=== PATIENT | female | born 1990 | race Caucasian/White ===

== ENCOUNTER 2018-06-04 16:45 | Emergency (ER) | payer BC, MEDICAID ==
--- NOTE | 2018-06-04 17:07 | EDM.PDOC ---
ED HPI GENERAL MEDICAL PROBLEM - General Chief Complaint: Abdominal Pain Stated Complaint: KROHNS DISEASE FLARE UP Time Seen by Provider: 06/04/18 16:45 Source of Information: Reports: Patient, Family History Limitations: Reports: No Limitations - History of Present Illness INITIAL COMMENTS - FREE TEXT/NARRATIVE: 27 y.o w f with a H/o Crohn's disease, came to the ed due to RLQ abd. pain. Pt had her appendix removed and had a partial colostomy as well. No N/V. Pt has chronic diarrhea, no blood in her stool. Stewart occ painful urinations. No trauma, no other acute medical issues. BP 129/90 pulse 98 RR 18 Pulse ox 100% on RA Temp 36.8 Onset Date: 06/04/18 Onset Time: 07:00 Duration: Hour(s):, Intermittent Location: Reports: Abdomen Severity: Mild Improves with: Reports: Rest Worsens with: Reports: Movement Context: Reports: Other Associated Symptoms: Reports: No Other Symptoms abdomen Pain Score (Numeric/FACES): 6 - Related Data Allergies Allergy/AdvReac Type Severity Reaction Status Date / Time acetaminophen Allergy Itching Verified 06/04/18 16:58 [From Tylenol-Codeine] codeine Allergy Itching Verified 06/04/18 16:58 [From Tylenol-Codeine] levofloxacin [From Levaquin] Allergy Facial Verified 06/04/18 16:58 Swelling Home Meds: Home Meds Acetaminophen/HYDROcodone [[place] 325-5 MG] 1 - 2 tab PO Q6H PRN #4 tab 06/04/18 [Rx] Sulfamethoxazole/Trimethoprim [Bactrim Ds Tablet] 1 each PO BID #20 tablet 06/04 [Rx] ED ROS GENERAL - Review of Systems Review Of Systems: See Below Constitutional: Reports: No Symptoms HEENT: Reports: No Symptoms Respiratory: Reports: No Symptoms Cardiovascular: Reports: No Symptoms Endocrine: Reports: No Symptoms GI/Abdominal: Reports: Abdominal Pain (RLQ of abdomen) : Reports: Dysuria Musculoskeletal: Reports: No Symptoms Skin: Reports: No Symptoms Neurological: Reports: No Symptoms Psychiatric: Reports: No Symptoms Hematologic/Lymphatic: Reports: No Symptoms Immunologic: Reports: No Symptoms ED EXAM, GI/ABD - Physical Exam Exam: See Below Exam Limited By: No Limitations General Appearance: Alert, WD/WN, Mild Distress, Moderate Distress, Obese Eyes: Bilateral: Normal Appearance Ears: Normal External Exam, Normal Canal, Hearing Grossly Normal, Normal TMs Nose: Normal Inspection, Normal Mucosa, No Blood Throat/Mouth: Normal Inspection, Normal Lips, Normal Gums, Normal Oropharynx, Normal Voice, No Airway Compromise Head: Atraumatic, Normocephalic Neck: Normal Inspection, Supple, Non-Tender Respiratory/Chest: No Respiratory Distress, Lungs Clear, Normal Breath Sounds, No Accessory Muscle Use, Chest Non-Tender Cardiovascular: Normal Peripheral Pulses, Regular Rate, Rhythm, No Edema, No JVD , No Murmur, No Rub GI/Abdominal Exam: Normal Bowel Sounds, Tender (RLQ (S?O appendectomy.) (Female) Exam: Deferred Rectal (Female) Exam: Deferred Back Exam: Normal Inspection, Full Range of Motion Extremities: Normal Inspection, Normal Range of Motion, Non-Tender, No Pedal Edema, Normal Capillary Refill Neurological: Alert, Oriented, CN II-XII Intact, Normal Cognition, Normal Gait, Normal Reflexes, No Motor/Sensory Deficits Psychiatric: Normal Affect, Normal Mood Skin Exam: Warm, Dry, Intact, Normal Color, No Rash Lymphatic: No Adenopathy Course - Vital Signs Text/Narrative:: 27 y.o w f with a H/o Crohn's disease, came to the ed due to RLQ abd. pain. Pt had her appendix removed and had a partial colostomy as well. No N/V. Pt has chronic diarrhea, no blood in her stool. Stewart occ painful urinations. No trauma, no other acute medical issues. BP 129/90 pulse 98 RR 18 Pulse ox 100% on RA Temp 36.8 27 y.o.w.f with RLQ abd. pain labs: UA pos for UTI Impression: UTI, Crohns Disease/flare up, loose stool. Tx: Bactrim DS, [place] Reexam: Improved Plan: D/C with instructions Last Recorded V/S: Last Vital Signs Temp 37.0 C 06/04/18 16:45 Pulse 86 06/04/18 18:10 Resp 16 06/04/18 18:10 BP 123/84 06/04/18 18:10 Pulse Ox 99 06/04/18 18:10 - Orders/Labs/Meds Orders: Active Orders 24 hr Category Date Time Status CULTURE URINE [RM] Stat Lab 06/04/18 17:15 Received HCG QUALITATIVE,URINE [URCHEM] Stat Lab 06/04/18 17:15 Ordered STOOL CULTURE Stat Lab 06/04/18 17:07 Ordered UA W/MICROSCOPIC [URIN] Stat Lab 06/04/18 17:15 Ordered Labs: Laboratory Tests 06/04/18 06/04/18 Range/Units 17:15 17:15 Urine Color Yellow (YELLOW) Urine Appearance Clear (CLEAR) Urine pH 5.0 (5.0-6.5) Ur Specific [place] 1.015 (1.010-1.025) Urine Protein Negative (NEGATIVE) mg/dL Urine Glucose (UA) Normal (NEGATIVE) mg/dL Urine Ketones Negative (NEGATIVE) mg/dL Urine Occult Blood Negative (NEGATIVE) Urine Nitrite Negative (NEGATIVE) Urine Bilirubin Negative (NEGATIVE) Urine Urobilinogen Normal (NEGATIVE) mg/dL Ur Leukocyte Esterase Small H (NEGATIVE) Urine RBC 0-5 (0) Urine WBC 5-10 (0) Ur Squamous Epith Cells Few H (NS,R,O) Urine Bacteria Moderate H (NS) Urine HCG, Qual Negative (NEGATIVE) Meds: Medications Discontinued Medications Generic Name Dose Route Start Last Admin Trade Name Freq PRN Reason Stop Dose Admin Hydrocodone Bitart/Acetaminophen 1 tab 06/04/18 17:10 06/04/18 17:15 [place] 325-5 Mg PO 06/04/18 17:11 1 tab ONETIME ONE Administration Trimethoprim/Sulfamethoxazole 1 tab 06/04/18 17:31 06/04/18 18:02 Sept[place] Ds PO 06/04/18 17:32 1 tab ONETIME ONE Administration Departure - Departure Time of Disposition: 18:03 Disposition: Home, Self-Care 01 Condition: Good Clinical Impression: Crohn's disease UTI (urinary tract infection) Qualifiers: Urinary tract infection type: acute cystitis Hematuria presence: without hematuria Qualified Code(s): N30.00 - Acute cystitis without hematuria - Discharge Information Prescriptions: Acetaminophen/HYDROcodone [[place] 325-5 MG] 1 - 2 tab PO Q6H PRN #4 tab PRN Reason: for severe pain only Sulfamethoxazole/Trimethoprim [Bactrim Ds Tablet] 1 each PO BID #20 tablet Instructions: Urinary Tract Infection, Adult, Crohn Disease Referrals: PCP,None [Primary Care Provider] - Forms: ED Department Discharge Additional Instructions: Please increase water intake, please take the meds as recommended, please follow up with your doctor, please come back if your symptoms get worse acutely - My Orders Last 24 Hours: My Active Orders 06/04/18 17:07 STOOL CULTURE Stat 06/04/18 17:15 CULTURE URINE [RM] Stat HCG QUALITATIVE,URINE [URCHEM] Stat UA W/MICROSCOPIC [URIN] Stat - Assessment/Plan Last 24 Hours: My Active Orders 06/04/18 17:07 STOOL CULTURE Stat 06/04/18 17:15 CULTURE URINE [RM] Stat HCG QUALITATIVE,URINE [URCHEM] Stat UA W/MICROSCOPIC [URIN] Stat
[2018-06-04] MEDS: Acetaminophen/HYDROcodone 325-5 MG Tab PO ONE (17:15)
[2018-06-04] MEDS: Sulfamethoxazole/Trimethoprim 800-160 MG Tab PO ONE (18:02)
== END 2018-06-04 18:14 | disposition home or self-care (01) ==
LOC: FB.ED 16:45
DX: K50.90 Crohn's disease, unspecified, without complications (principal); N30.00 Acute cystitis without hematuria; Z88.8 Allergy status to other drugs, medicaments and biological substances; Z88.5 Allergy status to narcotic agent
CPT/HCPCS: 81001; 81025; 87086; 99284; A9270